=== PATIENT | female | born 1945 | race Caucasian/White ===

== ENCOUNTER 2023-08-06 16:38 | Emergency (ER) | payer SELFPAY ==
[~2023-08-06] VITALS: Ht 165.1 cm; Wt 63.0 kg
[2023-08-06 18:00] LABS: BASOPHILS 0.6 % (0-2); EOSINOPHILS 1.2 % (0-6); HEMATOCRIT 40.3 % (35.0-50.0); HEMOGLOBIN 13.4 g/dL (12.0-18.0); LYMPHOCYTES 27.1 % (24-44); MCH 31.2 (27-36); MCHC 33.4 g/dl (30-36); MCV 93.5 fl (81-99); MONOCYTES 9.6 % (0-12); NEUTROPHILS 61.5 % (39-80); PLATELET COUNT 211 K/uL (140-440); RBC 4.31 M/ul (4.3-5.7); RDW 13.2 (10.5-15.0)
[2023-08-06 18:14] LABS: BILIRUBIN, URINE NEGATIVE (negative); BLOOD/HGB, URINE TRACE-I (Negative); KETONE, URINE NEGATIVE (Negative); LEUK ESTERASE, URINE NEGATIVE (negative); NITRITE, URINE NEGATIVE (negative)
[2023-08-06 18:15] LABS: ALBUMIN 3.4 g/dL (3.4-5.0); ALBUMIN/GLOBULIN RATIO 0.94 (1.1-2.4); ANION GAP 10.1 (7-21); BILIRUBIN, TOTAL 0.3 ng/dL (0.2-1.0); BUN/CREATININE RATIO 20.23 (6.0-28.6); CALCIUM 9.2 mg/dL (8.5-10.1); CREATININE, SERUM 0.84 mg/dL (0.55-1.02); POTASSIUM 4.1 mmol/L (3.5-5.1)
[2023-08-06 18:30] LABS: EPITHELIAL CELLS, URINE SQUAMOUS 2+ /lpf (0-1+); RED BLOOD CELLS, URINE 0-1 /hpf (0-5); REFLEX CULTURE, URINE No (No); WHITE BLOOD CELLS, URINE 0-1 /HPF (0-5)
[2023-08-06 19:37] VITALS: BP 125/100
== END 2023-08-06 19:37 | disposition home or self-care (01) ==
LOC: ED 16:38
PROVIDERS: Emergency Medicine
DX: M79.672 Pain in left foot (principal); M79.671 Pain in right foot; G30.9 Alzheimer's disease, unspecified; F02.80 Dementia in other diseases classified elsewhere, unspecified severity, without behavioral disturbance, psychotic disturbance, mood disturbance, and anxiety; Z91.013 Allergy to seafood
CPT/HCPCS: 11730; 36415; 80053; 81001; 85025; 99283-25